=== PATIENT | male | born 2000 | race Caucasian/White ===

== ENCOUNTER 2019-12-22 20:45 | Emergency (ER) | payer OTHER, SELFPAY ==
--- NOTE | 2019-12-22 20:51 | ED.DENTAL ---
HPI - Dental/Oral General Chief complaint: Dental/Oral Stated complaint: abcess. swollen face Time Seen by Provider: 12/22/19 20:51 Source: patient and RN notes reviewed Mode of arrival: ambulatory Limitations: no limitations History of Present Illness HPI Narrative: Patient complains of swelling on the left side of his upper face. Feels like he has a dental abscess. He denies any significant pain. He called out sick today and needs a work note. MD Complaint: tooth pain Location: Tooth # (12,13,14,15) Onset (ago): hour(s) (12) Severity: mild Relieving factors: nothing Context: history of dental caries and poor dental care Associated symptoms: gum swelling Treatment prior to arrival: oral analgesic Related Data Allergies Allergy/AdvReac Type Severity Reaction Status Date / Time No Known Allergies Allergy Verified 12/22/19 20:58 Review of Systems Review of Systems: All systems reviewed & are unremarkable except as noted in HPI and below Constitutional: Constitutional: Denies chills and Denies fever(s) PMFSH Past Medical History Medical History (Updated 12/22/19 @ 21:15 by Pool Torres MD) No active medical problems Surgical History Surgical History (Updated 12/22/19 @ 21:15 by Pool Torres MD) Fracture tibia/fibula Social History Social History (Updated 12/22/19 @ 21:23 by Pool Torres MD) Smoking status: Current every day smoker Alcohol intake: never Substance use: never Exam Const: General: healthy appearing, no acute distress and alert Nutritional Appearance: well nourished Orientation/consciousness: patient oriented x3 HENMT: Ears: external ears normal General nose exam: Normal external nose present Face and sinus: edema on the left maxilla (Left) Mouth: Yes lip normal and Yes moist mucous membranes Teeth and gingiva: gingiva normal, caries and poor dentition Eyes: Conjunctivae: conjunctivae normal Pupils: Equal, round and reactive pupils present EOM: EOMs intact bilaterally Neck: Neck: normal visual inspection and no lymphadenopathy Resp: Effort & Inspection: normal respiratory effort Auscultation: clear to auscultation bilaterally Cardio: Rate: regular rate Rhythm: regular rhythm Heart sounds: no murmurs GI: Auscultation: normal bowel sounds Skin: General skin exam: normal color Rashes: no rashes Neuro: General: patient oriented x3, moves all extremities and no focal motor deficits Speech: normal speech Extrem: General: normal to inspection and no clubbing, cyanosis or edema Psych: Appearance: grossly normal and well kempt Mental Status: mental status grossly normal Affect: normal affect Attitude: cooperative Thought content: Yes Normal thought content present Course Vital Signs Vital signs: Vital Signs Temperature 36.8 C 12/22/19 20:58 Pulse Rate 105 H 12/22/19 20:58 Respiratory Rate 16 12/22/19 20:58 Blood Pressure 172/95 H 12/22/19 20:58 Pulse Oximetry 100 12/22/19 20:58 Temperature 36.8 C 12/22/19 20:58 Pulse Rate 105 H 12/22/19 20:58 Respiratory Rate 16 12/22/19 20:58 Blood Pressure 172/95 H 12/22/19 20:58 Pulse Oximetry 100 12/22/19 20:58 Discharge Plan Discharge Clinical Impression: Dental abscess Patient Disposition: Home, Self-Care Condition: Stable Instructions: Dental Abscess (ED) Additional Instructions: Follow-up with primary care physician if not improved in 10 days. See dentist after finishing antibiotics. Prescriptions: New amoxicillin 500 mg capsule 500 mg PO TID 10 Days Qty: 30 RF: 0 Follow-up/Referrals: Felipe Galeano MD [Primary Care Provider] - Stand Alone Forms: Work/School Release IP Time of Disposition: 21:05 Discharge Date/Time: 12/22/19 21:18
[2019-12-22 20:58] VITALS: BP 172/95; PULSE 105; RESP 16; TEMP 36.8; O2SAT 100
[2019-12-22] MEDS: AMOXICILLIN 500 MG CAPSULE PO (21:09)
[2019-12-22 21:17] VITALS: BP 157/97
== END 2019-12-22 21:18 | disposition home or self-care (01) ==
PROVIDERS: Emergency Provider Emergency Medicine; PCP Family Medicine
DX: K04.7 Periapical abscess without sinus (principal)
CPT/HCPCS: 99283; A9270

== ENCOUNTER 2020-07-28 14:56 | Emergency (ER) | payer OTHER, SELFPAY ==
[2020-07-28 15:03] VITALS: BP 169/102; PULSE 102; RESP 16; TEMP 36.8; O2SAT 97
--- NOTE | 2020-07-28 15:05 | ED.DENTAL ---
HPI - Dental/Oral General Chief complaint: Dental/Oral Stated complaint: 20YO male w/ known h.o poor dentition here requesting ABX to start in preparation of getting his tooth pulled this upcoming Wednesday by his dentist. Denies Fever, chills, able to speak full sentances. Related Data Allergies Allergy/AdvReac Type Severity Reaction Status Date / Time No Known Allergies Allergy Verified 12/22/19 20:58 Review of Systems Review of Systems: All systems reviewed & are unremarkable except as noted in HPI and below Constitutional: Constitutional: Reports as per HPI, Denies chills, Denies fatigue, Denies fever(s) and Denies weakness Eyes: Eyes: Reports as per HPI ENT: Reports as per HPI Cardiovascular: Cardiovascular: Reports no additional cardiovascular complaints Respiratory: Respiratory: Reports no additional respiratory complaints Gastrointestinal: Gastrointestinal: Reports no additional gastrointestinal complaints Musculoskeletal: Musculoskeletal: Reports no additional musculoskeletal complaints Integumentary/Breasts: Skin/Breast: Reports system reviewed and no additional complaints, except as docu Neurologic: Reports system reviewed and no additional complaints, except as documented [facility] Past Medical History Medical History (Updated 07/28/20 @ 15:14 by Joon Robbins MD) Poor dentition Surgical History Surgical History Fracture tibia/fibula Social History Social History Smoking status: Current every day smoker Alcohol intake: never Substance use: never Exam Const: General: healthy appearing, no acute distress and alert Orientation/consciousness: patient oriented x3 HENMT: Head: normal to inspection Teeth and gingiva: abnormal tooth and associated gingiva (generalized poor dentition) Eyes: Conjunctivae: conjunctivae normal Pupils: Equal, round and reactive pupils present Neck: Neck: normal visual inspection and no lymphadenopathy Chest: Chest palpation & inspection: normal inspection of the chest Resp: Effort & Inspection: normal respiratory effort Auscultation: clear to auscultation bilaterally Cardio: Rate: regular rate Rhythm: regular rhythm Course Course Emergency Course: Home on Po clindamycin. Keep dentist appt already scheduled for this wednesday. MDM - Dental/Oral Differential Diagnosis Differential diagnosis: Likely dental caries and toothache; Unlikely dental abscess and fracture of tooth Medical Records Attestation: I reviewed the patient's medical records. Critical Care Time Critical Care Time Critical Care Time: No Discharge Plan Discharge Clinical Impression: Dental caries, Toothache Patient Disposition: Home, Self-Care Condition: Stable Instructions: Toothache (ED) Prescriptions: New clindamycin HCl 150 mg capsule 150 mg PO Q6H Qty: 30 RF: 0 Follow-up/Referrals: Felipe Galeano MD [Primary Care Provider] - Stand Alone Forms: Work/School Release IP Time of Disposition: 15:15
== END 2020-07-28 15:18 | disposition home or self-care (01) ==
PROVIDERS: Emergency Provider Family Medicine; PCP Family Medicine
DX: K02.9 Dental caries, unspecified (principal); K08.89 Other specified disorders of teeth and supporting structures
CPT/HCPCS: 99283

== ENCOUNTER 2021-02-25 17:48 | Emergency (ER) | payer OTHER, SELFPAY ==
--- NOTE | 2021-02-25 18:50 | ED.LOWEXIN ---
HPI - Extremity Injury (Lower) General Chief Complaint: Extremity Injury, Lower Stated Complaint: toe infection Time Seen by Provider: 02/25/21 19:06 Source: patient Mode of arrival: ambulatory Limitations: no limitations History of Present Illness HPI Narrative: 19-year-old man who was previously well comes in today complaining of a crack under his left pinky toe that is painful and draining pus. States his symptoms started yesterday. He has a history dry and cracking feet. he denies red streaks, fever, nausea, vomiting. He denies possibility of foreign body or having stepped on anything. complaint: foot injury Injury: Left: toes Type of Injury: unknown Severity: moderate Relieving factors: nothing Exacerbating factors: weight bearing and palpation Associated symptoms: able to partially bear weight Other symptoms: none Related Data Allergies Allergy/AdvReac Type Severity Reaction Status Date / Time No Known Allergies Allergy Verified 02/25/21 19:16 Review of Systems Review of Systems: All systems reviewed & are unremarkable except as noted in HPI and below Constitutional: Constitutional: Denies chills and Denies fever(s) ENT: Denies nasal congestion and Denies sore throat Cardiovascular: Cardiovascular: Denies chest pain and Denies radiating jaw, neck or arm pain Respiratory: Respiratory: Denies cough and Denies dyspnea Gastrointestinal: Gastrointestinal: Denies nausea and Denies vomiting Musculoskeletal: Musculoskeletal: Denies arthralgias and Denies joint swelling Integumentary/Breasts: Skin/Breast: Denies pruritus and Denies rash Neurologic: Denies vertigo, Denies dizziness and Denies syncope Hematologic/Lymphatic: Hematologic/Lymphatic: Denies easy bleeding and Denies easy bruising PMFSH Past Medical History Medical History (Updated 02/25/21 @ 19:18 by Travon Hughes MD) Poor dentition Surgical History Surgical History Fracture tibia/fibula Social History Social History (Updated 02/25/21 @ 19:14 by Travon Hughes MD) Smoking status: Current every day smoker Alcohol intake: current Alcohol use details: Occasional Substance use: never Living arrangements: with family Occupation/Education: occupation Gender identity (if verbalized by the patient): Male Exam Const: General: healthy appearing, no acute distress and alert Orientation/consciousness: patient oriented x3 Limitations: no limitations Eyes: Conjunctivae: conjunctivae normal Pupils: Equal, round and reactive pupils present EOM: EOMs intact bilaterally Resp: Effort & Inspection: normal respiratory effort and not labored Auscultation: clear to auscultation bilaterally, no rales, no rhonchi and no wheezes Cardio: Rate: regular rate Rhythm: regular rhythm Heart sounds: no murmurs Skin: General skin exam: normal color, no jaundice and no pallor Rashes: no rashes Other: There is a transverse the oriented fissure at the plantar base of the left small toe. There is a small amount of light yellow drainage. There is mild scaling on the medial lateral aspects of the sole and in between the toes but no fissures elsewhere. no erythema or lymphangitis or swelling is noted Neuro: General: patient oriented x3, moves all extremities, no focal motor deficits and CN's II-XI intact bilaterally Speech: normal speech Gait exam (Neuro): Normal gait present Extrem: General: no clubbing, cyanosis or edema Psych: Appearance: well kempt Mental Status: mental status grossly normal Affect: normal affect Attitude: cooperative Thought content: Yes Normal thought content present Discharge Plan Discharge Clinical Impression: Fissure in skin of foot, Athlete's foot on left Patient Disposition: Home, Self-Care Condition: Stable Instructions: Antibiotic Form, Athlete's Foot (ED), Acute Wounds (ED) Additional Instructions: Follow-up with your docto
[2021-02-25 19:06] VITALS: BP 161/99; PULSE 80; RESP 20; TEMP 36.5; O2SAT 100
[2021-02-25 19:36] VITALS: BP 160/88; PULSE 82; RESP 20; TEMP 36.4; O2SAT 98
== END 2021-02-25 19:38 | disposition home or self-care (01) ==
PROVIDERS: Emergency Provider Emergency Medicine; PCP Family Medicine
DX: R23.4 Changes in skin texture (principal); B35.3 Tinea pedis
CPT/HCPCS: 87070; 87077; 87186; 87205; 99283